=== PATIENT | female | born 2005 | race Caucasian/White ===

== ENCOUNTER 2023-07-10 17:34 | Emergency (ER) | payer BC, SELFPAY ==
[2023-07-10 17:37] VITALS: BP 115/80; PULSE 79; RESP 18; TEMP 36.5; O2SAT 97; BMI 25.8
--- NOTE | 2023-07-10 18:42 | EDS_ITS ---
HPI HPI - Psych History of Present Illness Chief Complaint: Mental Health Narrative Narrative: 17-year-old female, student, recently started Zoloft for depression and anxiety, has past medical history of ADHD as well, presents at the recommendation of her telehealth provider for mental health because of suicidal ideation. While she states she does not really have a plan and is unsure, she presents because of continued suicidal ideation. She denies any loss of appetite, no anhedonia, no insomnia or hypersomnolence. She states she has never been hospitalized for psychiatric reasons. PFSH PFSH Home Medications dextroamphetamine-amphetamine 10 mg tablet (Adderall) 10 mg PO DAILY 07/10/23 [History Last Taken Unknown] sertraline 50 mg tablet (Zoloft) 50 mg PO QHS 07/10/23 [History Last Taken Unknown] Allergy/AdvReac Type Severity Reaction Status Date / Time amoxicillin Allergy PT UNSURE Verified 07/10/23 17:36 OF REACTION Social History Smoking Status: Never smoker ROS ROS ED ROS Narrative Constitutional: No fever, no chills. HEENT: No sore throat. No neck pain. No loss of vision. No rhinorrhea. Cardiovascular: No chest pain. No palpitations. No pedal edema. Respiratory: No cough, no shortness of breath. Abdominal: No abdominal pain. No nausea. No vomiting. Genitourinary: No dysuria. No hematuria. Musculoskeletal: No myalgias. No arthralgias. Neurologic: No headaches. No dizziness. No lightheadedness. Skin: No rash. No change in color. Psychiatric: Positive depression with suicidal ideation. No hallucinations. EXAM Physical Exam Narrative Exam Narrative: Afebrile. Vital signs noted. HEENT: Normocephalic. Atraumatic. PERRL, EOMI. Neck soft and supple. No point tenderness or step off. Cardiovascular: Regular rate and rhythm. No murmurs, rubs, or gallops appreciated. Respiratory: No tachypnea. Lungs clear to auscultation bilaterally. Gastrointestinal: Abdomen soft, nontender, with normoactive bowel sounds. No rebound or guarding. Neurological: Awake. Alert. Nonfocal, nonlateralizing. Skin: No rash. Normal color. No pallor. Musculoskeletal: No pedal edema. Full range of motion extremities. Psychiatric: Positive suicidal thoughts. No internal stimulation or active hallucinations. Mildly flat affect. Const Vital Signs: 07/10/23 17:37 07/10/23 19:56 Temperature 97.7 F L 97.8 F Temperature Source Temporal Temporal Pulse Rate 79 73 Respiratory Rate 18 16 Blood Pressure 115/80 120/79 Blood Pressure Mean 91 92 Pulse Ox 97 97 Oxygen Delivery Method Room Air Room Air MDM MDM MDM Narrative Medical decision making narrative: Medical clearance labs were obtained. Concern is for suicidal with ideation with plan versus depression. I reviewed her laboratory work and she has normal white count of 7.6, hemoglobin normal at 13.3, platelet count normal at 332. CMP is grossly unremarkable except for glucose of 100 and AST low at 11 which I think is nonspecific. Other electrolytes are within normal limits. Serum is negative on review. Additionally urine for drugs of abuse is negative and alcohol level is also negative. At this point in time, I do feel that she is medically cleared to be evaluated by the crisis counselor. After her evaluation, discussion with the crisis counselor reveals that she is not really suicidal with a plan and she thinks of ways or things not to do. Was felt that she should contract for safety. She will be getting close follow-up with a long break at her school who will follow-up with her tomorrow. She knows that she supposed to check into the art therapy class as well. Crisis counselor states that they will follow-up with her on Thursday. She is able to verbally contract with me without ambivalence so I feel she can be discharged to follow- up and continue her Zoloft. They recently increased her from 25 to 50 mg so she will continue her 50 mg dosing. Return instructions to the emergency department were reviewed. Disposition is discharged home in stable condition. History & Record Review Discussion w/independent historian: Patient Lab Data Attestation: I reviewed the patient's lab results. Labs: Laboratory Results - last 24 hr 07/10/23 07/10/23 19:00 19:05 WBC 7.6 RBC 4.53 Hgb 13.3 Hct 40.7 MCV 89.8 MCH 29.4 MCHC 32.7 RDW Std Deviation 39.0 RDW Coeff of Edith 11.9 Plt Count 332 MPV 9.4 Immature Gran % (Auto) 0.300 Neut % (Auto) 59.5 Lymph % (Auto) 28.1 Daniels % (Auto) 8.9 Eos % (Auto) 2.4 Baso % (Auto) 0.8 Absolute Neuts (auto) 4.5 Absolute Lymphs (auto) 2.13 Nucleated RBC % 0 Sodium 141 Potassium 4.0 Chloride 106 Carbon Dioxide 28.0 Anion Gap 7 BUN 17 Creatinine 0.71 Estim Creat Clear Calc 108.81 Est GFR (MDRD) Af Amer 137 Est GFR (MDRD) Non-Af 113 BUN/Creatinine Ratio 24.1 H Glucose 100 Calcium 9.2 Total Bilirubin 0.30 AST 11 L ALT 16 Alkaline Phosphatase 81 Total Protein 7.6 Albumin 4.3 Globulin 3.3 Albumin/Globulin Ratio 1.3 Serum , Qual NEGATIVE Urine Opiates Screen NEGATIVE Urine Methadone Screen NEGATIVE Ur Barbiturates Screen NEGATIVE Ur Phencyclidine Scrn NEGATIVE Ur Amphetamines Screen NEGATIVE MDMA (Ecstasy) Screen NEGATIVE U Benzodiazepines Scrn NEGATIVE Urine Cocaine Screen NEGATIVE U Cannabinoids Screen NEGATIVE Ur Drug Screen Comment Ethyl Alcohol < 3.0 Discharge Plan Triage Chief Complaint: Mental Health ED Provider: Thom Mir Dx/Rx/DC Orders Clinical Impression: Suicidal thoughts, Depression Instructions: Suicide Know Self Warnings, ED Depression Prescriptions: No Action sertraline [Zoloft] 50 mg tablet 50 mg PO QHS dextroamphetamine-amphetamine [Adderall] 10 mg tablet 10 mg PO DAILY Primary Care Provider: Care Physician,No Primary Referrals: Counseling,Center [Group of Physicians] - 2 Days Care Physician,No Primary [Primary Care Provider] - Activity Restrictions/Additional Instructions: Follow-up with your counseling at school, and with the counseling center. Disposition Disposition: Home, Self Care
[2023-07-10 19:11] LABS: Absolute Lymphocyte Count 2.13 X10^3/uL (0.83-4.51); Absolute Neutrophil Count 4.5 X10^3/uL (2.0-7.7); Basophil# 0.06 X10^3/uL; Basophil% 0.8 % (0-1); Eosinophil# 0.18 X10^3/uL; Eosinophils% 2.4 % (0-5); Hematocrit 40.7 % (37-47); Hemoglobin 13.3 g/dL (12.0-15.0); Lymphocyte # 2.13 X10^3/ul (0.83-4.51); Lymphocyte % 28.1 % (19-41); Mean Corp Hgb Conc 32.7 g/dL (32-36); Mean Corpuscular Hgb 29.4 pg (27.0-32.0); Mean Corpuscular Volume 89.8 fL (81-99); Mean Platelet Vol. 9.4 fl (6.2-12.0); Monocyte# 0.67 X10^3/uL; Monocyte% 8.9 % (0-10); NRBC Flagged by Analyzer 0 % (0-5); Neutrophil # 4.51 X10^3/uL (2.7-7.7); Neutrophil % 59.5 % (47-70); Platelet Count 332 K/mm3 (150-450); RBC Distribution Width CV 11.9 % (11.6-14.6); Red Blood Count 4.53 M/mm3 (4.2-5.4); White Blood Count 7.6 K/mm3 (4.4-11.0)
[2023-07-10 19:49] LABS: Alcohol, Blood (Medical)-Serum < 3.0 mg/dL
[2023-07-10 19:53] LABS: Amphetamine Urine VISTA NEGATIVE (<1000 ng/mL); Barbiturate Urine VISTA NEGATIVE (< 200 ng/mL); Benzodiazepine Urine VISTA NEGATIVE (< 200 ng/mL); Cocaine Urine VISTA NEGATIVE (< 300 ng/mL); Ecstacy Urine VISTA NEGATIVE (< 500 ng/mL); Methadone Urine VISTA NEGATIVE (< 300 ng/mL); PCP Urine VISTA NEGATIVE (< 25 ng/mL); THC Urine VISTA NEGATIVE (< 50 ng/mL); Vista UDS pH Range 6
[2023-07-10 19:54] LABS: ALB/GLOB Ratio 1.3 RATIO (0.9-2.4); AST(SGOT) 11 U/L (15-37); Alanine Aminotransfer ALT/SGPT 16 U/L (13-56); Albumin, Serum 4.3 g/dL (3.2-5.0); Alkaline Phosphatase 81 U/L (45-117); Anion Gap 7 (5-15); BUN 17 mg/dL (7-18); BUN/Creat Ratio 24.1 RATIO (10-20); Calcium,Total 9.2 mg/dL (8.5-10.1); Chloride 106 mmol/L (98-107); Creatinine, Serum 0.71 mg/dL (0.55-1.02); EST Glomerular Filtration Rate 113 mL/min (>60); Est Glom Filt Rate - Afr Amer 137 mL/min (>60); Estimated Creatinine Clearance 108.81 ml/min; Globulin 3.3 g/dL (2.2-4.2); Glucose 100 mg/dL (74-106); Protein, Total 7.6 g/dL (6.4-8.2); Sodium Level 141 mmol/L (136-145)
[2023-07-10 19:56] VITALS: BP 120/79; PULSE 73; RESP 16; TEMP 36.6; O2SAT 97
[2023-07-10 20:04] LABS: Internal QC Validated? YES +Cl - CLEAR BKGD; Pregnancy, Serum, hCG Quali. NEGATIVE Negative
[2023-07-10 23:15] VITALS: BP 125/89; PULSE 77; RESP 16; TEMP 36.6; O2SAT 97
== END 2023-07-10 23:16 | disposition home or self-care (01) ==
PROVIDERS: Emergency Provider Emergency Medicine; Visit Provider Emergency Medicine
DX: R45.851 Suicidal ideations (principal); F32.A Depression, unspecified; F41.9 Anxiety disorder, unspecified; Z79.899 Other long term (current) drug therapy
CPT/HCPCS: 80053; 80307; 80320; 84703; 85025; 99285; G0480

== ENCOUNTER 2024-09-10 23:22 | Emergency (ER) | payer BC, SELFPAY ==
[2024-09-10 23:24] VITALS: BP 110/97; PULSE 86; RESP 16; TEMP 36.7; O2SAT 98; BMI 29.9
--- NOTE | 2024-09-10 23:50 | EDS_ITS ---
HPI History of Present Illness Chief Complaint: Lower Extremity Injury Narrative Narrative: 18-year-old female past medical history of depression and anxiety presents with her friend because of chronic left knee pain that she has had for over 3 years. She relates history that she quit playing field hockey last year. She states she has had multiple patellar dislocations of her left knee in the past, at least 5 times. She states that her sports physical therapist told her that it was more muscle spasm and all in her had although she states that she has replaced her kneecap multiple times when it has dislocated. She also states that she had x- rays performed at the [facility] and everything was okay with the bone. She complains of left medial and lateral knee pain that radiates outward from her knee both upward and down her leg. She denies any recent injuries or falls. She states that when she was in her hometown of [place], she was supposed to have an MRI but never had it performed. She presents mainly for referral to orthopedics here as she is a student at the [employer] Medical History Anxiety Home Medications ?Medication ?Instructions ?Recorded ?Last Taken ?Type sertraline 50 mg tablet (Zoloft) 50 mg PO QHS 07/10/23 Unknown History naproxen 375 mg tablet 375 mg PO BID PRN pain #20 t abs 09/10/24 Unknown Rx Allergy/AdvReac Type Severity Reaction Status Date / Time amoxicillin Allergy PT UNSURE Verified 09/10/24 23:24 OF REACTION Social History Smoking Status: Never smoker ROS ROS ED ROS Narrative Review of systems positive for chronic left knee pain for over 3 years. No recent falls. No fevers or chills. Pain worse with movement. Radiates up and down leg from knee. Both lateral and medial pain. EXAM Physical Exam Narrative Exam Narrative: GCS 15. ABCs intact. Focused examination of the left knee shows flexion extension mechanism intact. Able to lift leg off bed without difficulty. Neurovascular intact distally with palpable dorsalis pedis pulse. Const Vital Signs: 09/10/24 23:24 09/11/24 00:04 Temperature 98.0 F 98 F Temperature Source Oral Pulse Rate 86 76 Respiratory Rate 16 16 Blood Pressure 110/97 H 136/86 H Blood Pressure Mean 101 102 Pulse Ox 98 98 Oxygen Delivery Method Room Air MDM MDM MDM Narrative Medical decision making narrative: Differential diagnosis includes but not limited to chronic left knee pain exacerbation versus internal derangement of left knee. I do not feel x-ray is indicated and she states that she is already had one performed recently. She has not had any recent trauma. I had a lengthy discussion with the patient and her friend. She will be referred to orthopedics on-call, Dr. Lees. She will be placed in an Andrzej wrap and given naproxen continue ice and elevation at home. I do not feel she needs any imaging emergently. Disposition is discharged home in stable condition. History & Record Review Discussion w/independent historian: Patient and Friend Discharge Plan Triage Chief Complaint: Lower Extremity Injury ED Provider: Thom Mir Dx/Rx/DC Orders Clinical Impression: Chronic knee pain Instructions: ED Meniscal Injury Knee Poss, ED Home Care For Knee Pain, ED Pain Management: Chronic, ED Pain, Acute, Uncertain Cause Prescriptions: New naproxen 375 mg tablet 375 mg PO BID PRN (Reason: pain) Qty: 20 0RF No Action sertraline [Zoloft] 50 mg tablet 50 mg PO QHS Primary Care Provider: Care Physician,No Primary Referrals: Mario Alberto Lees MD [Med Staff - Active Staff] - As soon as possible Care Physician,No Primary [Primary Care Provider] - Activity Restrictions/Additional Instructions: Follow-up with orthopedics as soon as possible. Print Language: Somali Disposition Disposition: Home, Self Care Discharge Date/Time: 09/11/24 00:05
[2024-09-10] MEDS: Naproxen 375 MG Tablet PO (23:59)
--- OUTSIDE RECORDS SUMMARY | 2024-09-11 00:03 | XMS RPT_ITS | CCD ---
Author Organization [facility] Inform ion Partnership [employer] [facility] Care Team Providers Care Spinning Machine Tender Name Role Phone Unavailable Primary Care Provider UnavailThom Hooper Attending Unavailable Care Physician, No Primary Primary Care Unava ilable Unavailable Primary Care Provider Unavailabl e Allergies Allergy Classification Reported Allergen(s) Allergy Type Date of Onset Reaction(s) Facility (3 sources) Amoxicillin Drug Allergy 07-14-2007 Sandra Khan [facility] (1 source) Amoxicillin Drug Allergy 07-10-2023 [facility] Repository Medications Current Medications Medication Drug Class(es) Dates Sig (Normalized) Sig (Original) amphetamine aspartate 2.5 mg / amphetamine sulfate 2.5 mg / dextroamphetamine saccharate 2.5 mg / dextroamphetamine sulfate 2.5 mg oral tablet (3 sources) Central Nervous System Stimulant Start: 07-10-2023 take 1 tablet by mouth once daily Dextroamphetamin e-Amphetamine (Adderall) 10 mg tablet Active 10 MG PO DAILY July 10, 2023 12:00am Start: 02-27-2021 amphetamine-de xtroamphetamine XR (ADDERALL XR) 15 mg 24 hr capsule 02/27/2021 Active sertraline 50 mg oral tablet (1 source) Serotonin Reuptake Inhibitor Start: 07-10-2023 take 1 tablet by mouth at bedtime Sertraline (Zoloft) 50 mg tablet Active 50 MG PO AT BEDTIME July 10, 2023 12:00am Problems Problem Classification Problem Date Documented Da te Episodic/Chronic Mood disorders (1 source) Depressive disorder; Translations: [Depression] 07-10-2023 Chronic Other non-traumatic joint disorders (2 sources) Pain in left knee; Translations: [Pain in joint, lower leg] Episodic Suicide and intentional self-inflicted injury (2 sources) Suicidal thoughts; Translations: [Suicidal ideations] Onset: 11-16-2023 07-10-2023 Episodic Results Test Name Value Interpretation Reference Range Facility Absolute lymphocyte countOrd ered By: Thom Mir on 07-10-2023 Lymphocytes Auto (Unsp spec) [#/Vol] 2.13 10*3/uL 0.83-4.51 [facility] Alcohol, Blood (Medical)-Ser umon 07-10-2023 SERUM ETOH < 3.0 Normal [facility] Comment on above: Result Comment: The serum:whole blood ethanol ratio is approximately 1.14 and varies slightly with hematocrit. Medical Alcohol reference interval and critical value in non-tolerant individuals; 50 - 100 Impairment 100 Intoxication 100 - 250 Severe Poisoning 250 - 400 Deep/possible fatal coma Performed By: #### L 700.6800, L500.4050, L505.5000, L100.0100, L501.9100 #### [facility] [address] [place], [address] Automated lymphocyte count a s percentage of total leukocytesOrdered By: Thom Mir on 07-10-2023 Lymphocytes/100 WBC Auto (Unsp spec) 28.1 % 19-41 [facility] Basophil percentageOrdered B y: Thom Mir on 07-10-2023 Basophils/100 WBC (Bld) 0.8 % 0-1 [facility] Bilirubin [Mass/Vol] 0.30 mg/dL 0.20-1.00 [facility] Comment on above: For patients on eltr ombopag therapy, use of Dimension [place] TBIL is not recommended. Chloride [Moles/Vol] 106 mmol/L 98-107 [facility] Eosinophils/100 WBC (Bld) 2.4 % 0-5 [facility] Glucose [Mass/Vol] 100 mg/dL 74-106 [facility] Comment on above: Fasting Glucose resu lt from 100 to 125 mg/dL suggests IMPAIRED HOMEOSTASIS per A.D.A. criteria. Hemoglobin (Bld) [Mass/Vol] 13.3 g/dL 12.0-15.0 [facility] Monocytes/100 WBC (Bld) 8.9 % 0-10 [facility] Neutrophils (Bld) [#/Vol] 4.5 10*3/uL 2.0-7.7 [facility] Neutrophils/100 WBC (Bld) 59.5 % 47-70 [facility] Potassium [Moles/Vol] 4.0 mmol/L 3.5-5.1 [facility] Protein [Mass/Vol] 7.6 g/dL 6.4-8.2 [facility] Sodium [Moles/Vol] 141 mmol/L 136-145 [facility] WBC (Bld) [#/Vol] 7.6 10*3/uL 4.4-11.0 [facility] CBC W/Diff, Automatedon 06-21 Absolute Lymph 2.13 X10 3/uL Normal 0.83-4.51 [facility] Comment on above: Performed By: #### L 700.6800, L500.4050, L505.5000, L100.0100, L501.9100 #### [facility] [address] [place], [address] Absolute Neut 4.5 X10 3/uL Normal 2.0-7.7 [facility] Comment on above: Performed By: #### L 700.6800, L500.4050, L505.5000, L100.0100, L501.9100 #### [facility] [address] [place], [address] Basophils/100 WBC (Bld) 0.8 % Normal 0-1 [facility] Comment on above: Performed By: #### L 700.6800, L500.4050, L505.5000, L100.0100, L501.9100 #### [facility] [address] [place], [address] Eosinophils/100 WBC (Bld) 2.4 % Normal 0-5 [facility] Comment on above: Performed By: #### L 700.6800, L500.4050, L505.5000, L100.0100, L501.9100 #### [facility] [address] [place], [address] Erythrocyte distribution width (RBC) [Ratio] 11.9 % Normal 11.6-14.6 [facility] Comment on above: Performed By: #### L 700.6800, L500.4050, L505.5000, L100.0100, L501.9100 #### [facility] [address] [place], [address] Hematocrit (Bld) [Volume fraction] 40.7 % Normal 37-47 [facility] Comment on above: Performed By: #### L 700.6800, L500.4050, L505.5000, L100.0100, L501.9100 #### [facility] [address] [place], [address] Hemoglobin (Bld) [Mass/Vol] 13.3 g/dL Normal 12.0-15.0 [facility] Comment on above: Performed By: #### L 700.6800, L500.4050, L505.5000, L100.0100, L501.9100 #### [facility] [address] [place], [address] IG% 0.300 Normal 0.0-0.9 [facility] Comment on above: Result Comment: IG% - Immature Granulocytes (promyelocytes, myelocytes and metamyelocytes) > 1% indicates that a LEFT SHIFT is Present. Performed By: #### L 700.6800, L500.4050, L505.5000, L100.0100, L501.9100 #### [facility] [address] [place], [address] Lymphocytes/100 WBC (Bld) 28.1 % Normal 19-41 [facility] Comment on above: Performed By: #### L 700.6800, L500.4050, L505.5000, L100.0100, L501.9100 #### [facility] [address] [place], [address] MCH (RBC) [Entitic mass] 29.4 pg Normal 27.0-32.0 [facility] Comment on above: Performed By: #### L 700.6800, L500.4050, L505.5000, L100.0100, L501.9100 #### [facility] [address] [place], [address] MCHC (RBC) [Mass/Vol] 32.7 g/dL Normal 32-36 [facility] Comment on above: Performed By: #### L 700.6800, L500.4050, L505.5000, L100.0100, L501.9100 #### [facility] [address] [place], [address] MCV (RBC) [Entitic vol] 89.8 fL Normal 81-99 [facility] Comment on above: Performed By: #### L 700.6800, L500.4050, L505.5000, L100.0100, L501.9100 #### [facility] [address] [place], [address] Monocytes/100 WBC (Bld) 8.9 % Normal 0-10 [facility] Comment on above: Performed By: #### L 700.6800, L500.4050, L505.5000, L100.0100, L501.9100 #### [facility] [address] [place], [address] Neutrophils/100 WBC (Bld) 59.5 % Normal 47-70 [facility] Comment on above: Performed By: #### L 700.6800, L500.4050, L505.5000, L100.0100, L501.9100 #### [facility] [address] [place], [address] Nucleated RBC (Bld) [#/Vol] 0 10*3/uL Normal 0-5 [facility] Comment on above: Performed By: #### L 700.6800, L500.4050, L505.5000, L100.0100, L501.9100 #### [facility] [address] [place], [address] Platelet mean volume (Bld) [Entitic vol] 9.4 fL Normal 6.2-12.0 [facility] Comment on above: Performed By: #### L 700.6800, L500.4050, L505.5000, L100.0100, L501.9100 #### [facility] [address] [place], [address] Platelets (Bld) [#/Vol] 332 10*3/uL Normal 150-450 [facility] Comment on above: Performed By: #### L 700.6800, L500.4050, L505.5000, L100.0100, L501.9100 #### [facility] [address] [place], [address] RBC (Bld) [#/Vol] 4.53 10*6/uL Normal 4.2-5.4 [facility] Comment on above: Performed By: #### L 700.6800, L500.4050, L505.5000, L100.0100, L501.9100 #### [facility] [address] [place], [address] RDW SD 39.0 fl Normal 35.1-43.9 [facility] Comment on above: Performed By: #### L 700.6800, L500.4050, L505.5000, L100.0100, L501.9100 #### [facility] [address] [place], [address] WBC (Bld) [#/Vol] 7.6 10*3/uL Normal 4.4-11.0 [facility] Comment on above: Performed By: #### L 700.6800, L500.4050, L505.5000, L100.0100, L501.9100 #### [facility] [address] [place], [address] Comprehensive Metabolic Prof ilon 07-10-2023 Albumin [Mass/Vol] 4.3 g/dL Normal 3.2-5.0 [facility] Comment on above: Performed By: #### L 700.6800, L500.4050, L505.5000, L100.0100, L501.9100 #### [facility] [address] [place], [address] Albumin/Globulin [Mass ratio] 1.3 {ratio} Normal 0.9-2.4 [facility] Comment on above: Performed By: #### L 700.6800, L500.4050, L505.5000, L100.0100, L501.9100 #### [facility] [address] [place], [address] ALK P 81 U/L Normal 45-117 [facility] Comment on above: Performed By: #### L 700.6800, L500.4050, L505.5000, L100.0100, L501.9100 #### [facility] [address] [place], [address] ALT [Catalytic activity/Vol] 16 U/L Normal 13-56 [facility] Comment on above: Performed By: #### L 700.6800, L500.4050, L505.5000, L100.0100, L501.9100 #### [facility] [address] [place], [address] AST [Catalytic activity/Vol] 11 U/L Low 15-37 [facility] Comment on above: Performed By: #### L 700.6800, L500.4050, L505.5000, L100.0100, L501.9100 #### [facility] [address] [place], [address] Bilirubin [Mass/Vol] 0.30 mg/dL Normal 0.20-1.00 [facility] Comment on above: Result Comment: For patients on eltrombopag therapy, use of Dimension [place] TBIL is not recommended. Performed By: #### L 700.6800, L500.4050, L505.5000, L100.0100, L501.9100 #### [facility] [address] [place], [address] BUN/CRE 24.1 RATIO High 10-20 [facility] Comment on above: Performed By: #### L 700.6800, L500.4050, L505.5000, L100.0100, L501.9100 #### [facility] [address] [place], [address] CA,Total 9.2 mg/dL Normal 8.5-10.1 [facility] Comment on above: Performed By: #### L 700.6800, L500.4050, L505.5000, L100.0100, L501.9100 #### [facility] [address] [place], [address] Chloride [Moles/Vol] 106 mmol/L Normal 98-107 [facility] Comment on above: Performed By: #### L 700.6800, L500.4050, L505.5000, L100.0100, L501.9100 #### [facility] [address] [place], [address] CO2 [Moles/Vol] 28.0 mmol/L Normal 21.0-32.0 [facility] Comment on above: Performed By: #### L 700.6800, L500.4050, L505.5000, L100.0100, L501.9100 #### [facility] [address] [place], [address] Creatinine [Mass/Vol] 0.71 mg/dL Normal 0.55-1.02 [facility] Comment on above: Result Comment: The validity of the calculated GFR GFRAA in patients over 70 years has not been determined. Clinical correlation is essential. Performed By: #### L 700.6800, L500.4050, L505.5000, L100.0100, L501.9100 #### [facility] [address] [place], [address] ECRCL 108.81 ml/min Normal [facility] Comment on above: Performed By: #### L 700.6800, L500.4050, L505.5000, L100.0100, L501.9100 #### [facility] [address] [place], [address] EST GFR - AA 137 mL/min Normal >60 [facility] Comment on above: Result Comment: Afri can Iraqi GFR Calc Performed By: #### L 700.6800, L500.4050, L505.5000, L100.0100, L501.9100 #### [facility] [address] [place], [address] GAP 7 Normal 5-15 [facility] Comment on above: Performed By: #### L 700.6800, L500.4050, L505.5000, L100.0100, L501.9100 #### [facility] [address] [place], [address] GFR/1.73 sq M.predicted among non-blacks MDRD (S/P/Bld) [Vol rate/Area] 113 mL/min/{1.73_m2} Normal >60 [facility] Comment on above: Result Comment: Non- GFR Calc Performed By: #### L 700.6800, L500.4050, L505.5000, L100.0100, L501.9100 #### [facility] [address] [place], [address] Globulin (S) [Mass/Vol] 3.3 g/dL Normal 2.2-4.2 [facility] Comment on above: Performed By: #### L 700.6800, L500.4050, L505.5000, L100.0100, L501.9100 #### [facility] [address] [place], [address] Glucose [Mass/Vol] 100 mg/dL Normal 74-106 [facility] Comment on above: Result Comment: Fast ing Glucose result from 100 to 125 mg/dL suggests IMPAIRED HOMEOSTASIS per A.D.A. criteria. Performed By: #### L 700.6800, L500.4050, L505.5000, L100.0100, L501.9100 #### [facility] [address] [place], [address] Potassium [Moles/Vol] 4.0 mmol/L Normal 3.5-5.1 [facility] Comment on above: Performed By: #### L 700.6800, L500.4050, L505.5000, L100.0100, L501.9100 #### [facility] [address] [place], [address] Sodium [Moles/Vol] 141 mmol/L Normal 136-145 [facility] Comment on above: Performed By: #### L 700.6800, L500.4050, L505.5000, L100.0100, L501.9100 #### [facility] [address] [place], [address] T PROT 7.6 g/dL Normal 6.4-8.2 [facility] Comment on above: Performed By: #### L 700.6800, L500.4050, L505.5000, L100.0100, L501.9100 #### [facility] [address] [place], [address] Urea nitrogen [Mass/Vol] 17 mg/dL Normal 7-18 [facility] Comment on above: Performed By: #### L 700.6800, L500.4050, L505.5000, L100.0100, L501.9100 #### [facility] [address] [place], [address] Determination of erythrocyte mean corpuscular volume (MCV)Ordered By: Thom Mir on 07-10-2023 MCV (RBC) [Entitic vol] 89.8 fL 81-99 [facility] Emergency Department Summary on 07-10-2023 Emergency Department Summary [facility] Medical Records Department [address] [place] [address] Emergency Department Summary 07/10/23 MR#: [id number] Acct: [id number] Name: JERRI JIMENEZ Rep #: [id number] : 2005 17 From: Thom Mir MD PCP: Care Physician,No Primary Status:REG ER Location: ED HPI HPI - Psych History of Present Illness Chief Complaint: Mental Health Narrative Narrative: 17-year-old female, student, recently started Zoloft for depression and anxiety, has past medical history of ADHD as well, presents at the recommendation of her telehealth provider for mental health because of suicidal ideation. While she states she does not really have a plan and is unsure, she presents because of continued suicidal ideation. She denies any loss of appetite, no anhedonia, no insomnia or hypersomnolence. She states she has never been hospitalized for psychiatric reasons. PFSH PFSH Home Medications dextroamphetamine-amphet amine 10 mg tablet (Adderall) 10 mg PO DAILY 07/10/23 [History Last Taken Unknown] sertraline 50 mg tablet (Zoloft) 50 mg PO QHS 07/10/23 [History Last Taken Unknown] Allergy/AdvReac Type Severity Reaction Status Date / Time amoxicillin Allergy PT UNSURE Verified 07/10/23 17:36 OF REACTION Social History Smoking Status: Never smoker ROS ROS ED ROS Narrative Constitutional: No fever, no chills. HEENT: No sore throat. No neck pain. No loss of vision. No rhinorrhea. Cardiovascular: No chest pain. No palpitations. No pedal edema. Respiratory: No cough, no shortness of breath. Abdominal: No abdominal pain. No nausea. No vomiting. Genitourinary: No dysuria. No hematuria. Musculoskeletal: No myalgias. No arthralgias. Neurologic: No headaches. No dizziness. No lightheadedness. Skin: No rash. No change in color. Psychiatric: Positive depression with suicidal ideation. No hallucinations. EXAM Physical Exam Narrative Exam Narrative: Afebrile. Vital signs noted. HEENT: Normocephalic. Atraumatic. PERRL, EOMI. Neck soft and supple. No point tenderness or step off. Cardiovascular: Regular rate and rhythm. No murmurs, rubs, or gallops appreciated. Respiratory: No tachypnea. Lungs clear to auscultation bilaterally. Gastrointestinal: Abdomen soft, nontender, with normoactive bowel sounds. No rebound or guarding. Neurological: Awake. Alert. Nonfocal, nonlateralizing. Skin: No rash. Normal color. No pallor. Musculoskeletal: No pedal edema. Full range of motion extremities. Psychiatric: Positive suicidal thoughts. No internal stimulation or active hallucinations. Mildly flat affect. Const Vital Signs: 07/10/23 17:37 07/10/23 19:56 Temperature 97.7 F L 97.8 F Temperature Source Temporal Temporal Pulse Rate 79 73 Respiratory Rate 18 16 Blood Pressure 115/80 120/79 Blood Pressure Mean 91 92 Pulse Ox 97 97 Oxygen Delivery Method Room Air Room Air MDM MDM MDM Narrative Medical decision making narrative: Medical clearance labs were obtained. Concern is for suicidal with ideation with plan versus depression. I reviewed her laboratory work and she has normal white count of 7.6, hemoglobin normal at 13.3, platelet count normal at 332. CMP is grossly unremarkable except for glucose of 100 and AST low at 11 which I think is nonspecific. Other electrolytes are within normal limits. Serum is negative on review. Additionally urine for drugs of abuse is negative and alcohol level is also negative. At this point in time, I do feel that she is medically cleared to be evaluated by the crisis counselor. After her evaluation, discussion with the crisis counselor reveals that she is not really suicidal with a plan and she thinks of ways or things not to do. Was felt that she should contract for safety. She will be getting close follow-up with a long break at her school who will follow-up with her tomorrow. She knows that she supposed to check into the art therapy class as well. Crisis counselor states that they will follow-up with her on Thursday. She is able to verbally contract with me without ambivalence so I feel she can be discharged to follow-up and continue her Zoloft. They recently increased her from 25 to 50 mg so she will continue her 50 mg dosing. Return instructions to the emergency department were reviewed. Disposition is discharged home in stable condition. History Record Review Discussion w/independent historian: Patient Lab Data Attestation: I reviewed the patient's lab results. Labs: Laboratory Results - last 24 hr 07/10/23 07/10/23 19:00 19:05 WBC 7.6 RBC 4.53 Hgb 13.3 Hct 40.7 MCV 89.8 MCH 29.4 MCHC 32.7 RDW Std Deviation 39.0 RDW Coeff of Edith 11.9 Plt Count 332 MPV 9.4 Immature Gran % (Auto) 0.300 Ne (more content not included)... Normal [facility] Erythrocyte distribution wid th ratioOrdered By: Thom Mir on 07-10-2023 Erythrocyte distribution width (RBC) [Ratio] 11.9 % 11.6-14.6 [facility] Erythrocyte distribution wid th standard deviationOrdered By: Thom Mir on 07-10-2023 Erythrocyte distribution width (RBC) [Entitic vol] 39.0 fL 35.1-43.9 [facility] Hematocrit Auto (Bld) [Volum e fraction]Ordered By: Thom Mir on 07-10-2023 Hematocrit (Bld) [Volume fraction] 40.7 % 37-47 [facility] Immature granulocytes/100 WB C Auto (Bld)Ordered By: Thom Mir on 07-10-2023 Immature granulocytes/100 WBC (Bld) 0.300 % 0.0-0.9 [facility] Comment on above: IG% - Immature Granu locytes (promyelocytes, myelocytes and metamyelocytes) > 1% indicates that a LEFT SHIFT is Present. Laboratory - Chemistry and C hemistry - challengeOrdered By: Thom Mir on 07-10-2023 Albumin/Globulin [Mass ratio] 1.3 {ratio} 0.9-2.4 [facility] ALP [Catalytic activity/Vol] 81 U/L 45-117 [facility] ALT [Catalytic activity/Vol] 16 U/L 13-56 [facility] CO2 [Moles/Vol] 28.0 mmol/L 21.0-32.0 [facility] Globulin (S) [Mass/Vol] 3.3 g/dL 2.2-4.2 [facility] Urea nitrogen/Creatinine [Mass ratio] 24.1 mg/mg 10-20 [facility] - Drug toxicology Ordered By: Thom Mir on 07-10-2023 Amphetamines Ql (U) Negative <1000 ng/mL [facility] Benzodiazepines Ql (U) Negative < 200 ng/mL [facility] Cannabinoids Screen Ql (U) Negative < 50 ng/mL [facility] Cocaine Ql (U) Negative < 300 ng/mL [facility] Opiates Ql (U) Negative < 300 ng/mL [facility] Laboratory - Hematology and Cell countsOrdered By: Thom Mir on 07-10-2023 MCH (RBC) [Entitic mass] 29.4 pg 27.0-32.0 [facility] MCHC (RBC) [Mass/Vol] 32.7 g/dL 32-36 [facility] Nucleated RBC/100 WBC (Bld) [Ratio] 0 % 0-5 [facility] Platelet mean volume (Bld) [Entitic vol] 9.4 fL 6.2-12.0 [facility] Platelets (Bld) [#/Vol] 332 10*3/uL 150-450 [facility] No Panel InformationOrdered By: Thom Mir on 07-10-2023 Estimated Creatinine Clearance Calc 108.81 ml/min [facility] Estimated GFR (MDRD) Amer 137 mL/min >60 [facility] Comment on above: GFR Calc Estimated GFR (MDRD) Non-Af Amer 113 mL/min >60 [facility] Comment on above: Non- GFR Calc Ethyl Alcohol Level < 3.0 mg/dL [facility] Comment on above: The serum:whole bloo d ethanol ratio is approximately 1.14and varies slightly with hematocrit. Medical Alcohol reference interval and critical value innon-tolerant individuals; 50 - 100 Impairment 100 Intoxication 100 - 250 Severe Poisoning 250 - 400 Deep/possible fatal coma MDMA (Ecstasy) Screen Negative < 500 ng/mL [facility] Urine Barbiturates Screen Negative < 200 ng/mL [facility] Urine Drug Screen Comment [facility] Comment on above: CONFIRMATORY TESTING FOR ALL POSITIVE URINE DRUG SCREENRESULTS WILL ONLY BE SENT OUT UPON PHYSICIAN ORDER. VISTA Urine Drug Screen methods provide only preliminaryanalytical test results. A more specific alternate chemicalmethod must be used in order to obtain a confirmedanalytical result. Gas chromatography/mass spectrometery(GC/MS) is the preferred confirmatory method. Clinicalconsideration and professional judgement should be appliedto any drug of abuse test result, particularly whenpreliminary positive results are used. URINE TCA TESTING MUST BE ORDERED SEPARATELY. USE TESTMNEMONIC: [facility] Urine Methadone Screen Negative < 300 ng/mL [facility] ,Serum,hCG Quali.on 07-10-2023 HCG, SERUM QUAL Negative Normal [facility] Comment on above: Performed By: #### L 700.6800, L500.4050, L505.5000, L100.0100, L501.9100 #### [facility] [place], [address] RBC Auto (Bld) [#/Vol]Ordere d By: Thom Mir on 07-10-2023 RBC (Bld) [#/Vol] 4.53 10*6/uL 4.2-5.4 [facility] Serum or plasma calcium hawa urement (mass/volume)Ordered By: Thom Mir on 07-10-2023 Calcium [Mass/Vol] 9.2 mg/dL 8.5-10.1 [facility] Serum or plasma choriogonado tropin detectionOrdered By: Thom Mir on 07-10-2023 HCG ( test) Ql Negative [facility] Serum or plasma creatinine m easurement (mass/volume)Ordered By: Thom Mir on 07-10-2023 Creatinine [Mass/Vol] 0.71 mg/dL 0.55-1.02 [facility] Comment on above: The validity of the calculated GFR & GFRAA in patients over 70 years has not been determined. Clinical correlation is essential. Serum or plasma urea nitroge n measurement (mass/volume)Ordered By: Thom Mir on 07-10-2023 Urea nitrogen [Mass/Vol] 17 mg/dL 7-18 [facility] Thin prep Papanicolaou smear with manual screeningOrdered By: Thom Mir on 07-10-2023 Thin prep Papanicolaou smear with manual screening 4.3 g/dL 3.2-5.0 [facility] Thin prep Papanicolaou smear with manual screening 11 U/L 15-37 [facility] Thin prep Papanicolaou smear with manual screening 7 5-15 [facility] Urine Drug Screen (VISTA)on 07-10-2023 AMPHETAMINES Negative Normal <1000 ng/mL [facility] Comment on above: Performed By: #### L 700.6800, L500.4050, L505.5000, L100.0100, L501.9100 #### [facility] [address] [place], [place], [facility] BARBITIURATES Negative Normal < 200 ng/mL [facility] Comment on above: Performed By: #### L 700.6800, L500.4050, L505.5000, L100.0100, L501.9100 #### [facility] [address] [place], [place], [facility] BENZODIAZIPINE Negative Normal < 200 ng/mL [facility] Comment on above: Performed By: #### L 700.6800, L500.4050, L505.5000, L100.0100, L501.9100 #### [facility] [address] [place], [place], [facility] COCAINE Negative Normal < 300 ng/mL [facility] Comment on above: Performed By: #### L 700.6800, L500.4050, L505.5000, L100.0100, L501.9100 #### [facility] [address] [place], [address] ECSTACY Negative Normal < 500 ng/mL [facility] Comment on above: Performed By: #### L 700.6800, L500.4050, L505.5000, L100.0100, L501.9100 #### [facility] [address] [place], [address] METHADONE Negative Normal < 300 ng/mL [facility] Comment on above: Performed By: #### L 700.6800, L500.4050, L505.5000, L100.0100, L501.9100 #### [facility] [address] [place], [address] OPIATES Negative Normal < 300 ng/mL [facility] Comment on above: Performed By: #### L 700.6800, L500.4050, L505.5000, L100.0100, L501.9100 #### [facility] [address] [place], [address] PCP Negative Normal < 25 ng/mL [facility] Comment on above: Performed By: #### L 700.6800, L500.4050, L505.5000, L100.0100, L501.9100 #### [facility] [address] [place], [address] THC Negative Normal < 50 ng/mL [facility] Comment on above: Performed By: #### L 700.6800, L500.4050, L505.5000, L100.0100, L501.9100 #### [facility] [address] [place], [address] VISTA UDS PH 6 Normal [facility] Comment on above: Performed By: #### L 700.6800, L500.4050, L505.5000, L100.0100, L501.9100 #### [facility] [address] [place], [address] Urine phencyclidine (PCP) de tectionOrdered By: Thom Mir on 07-10-2023 Phencyclidine Ql (U) Negative < 25 ng/mL [facility] XR KNEE GENERAL 4V AP BOTH/P A BOTH/LAT/MERC LEFTon 07-09-2022 [facility] XR Knee - left 4 Viewson IMPRESSION: LEFT KNEE: Normal left knee. No acute findings. RIGHT KNEE: Normal images of the right knee. Lateral view of the right knee was not obtained. Costume Design Teacher: ISREAL Transcribe Date/Time: Jul 09 2022 7:24P Dictated by : ANIBAL DUMONT MD This examination was interpreted and the report reviewed and electronically signed by: ANIBAL DUMONT MD on Jul 09 2022 7:27PM [facility] DIVISION OF RADIOLOGY * * *Final Report* * * DATE OF EXAM: Jul 09 2022 7:15PM WOX 5202 - XR KNEE 4V AP/PA BOTH+LAT/JALYN LT / PROCEDURE REASON: Acute pain of left knee * * * * Physician Interpretation * * * * LEFT KNEE 1 VIEWS, BILATERAL KNEES, 3 VIEW, 07/09/2022 HISTORY: Injury. Acute pain of left knee COMPARISON: None TECHNIQUE: Standing AP and PA views of bilateral knees. Bilateral patellar sunrise views. Lateral view left knee.. RESULTS: LEFT KNEE: The bones are intact and normally aligned. There are no underlying bone or joint abnormalities. There is no appreciable joint effusion. There are no periarticular calcifications. RIGHT KNEE: The bones are intact and normally aligned. There are no underlying bone or joint abnormalities. No periarticular calcifications are present. DIVISION OF RADIOLOGY Provider, [facility] - 07/09/2022 * * *Final Report* * * DATE OF EXAM: Jul 09 2022 7:15PM WOX 5202 - XR KNEE 4V AP/PA BOTH+LAT/JALYN LT / PROCEDURE REASON: Acute pain of left knee * * * * Physician Interpretation * * * * LEFT KNEE 1 VIEWS, BILATERAL KNEES, 3 VIEW, 07/09/2022 HISTORY: Injury. Acute pain of left knee COMPARISON: None TECHNIQUE: Standing AP and PA views of bilateral knees. Bilateral patellar sunrise views. Lateral view left knee.. RESULTS: LEFT KNEE: The bones are intact and normally aligned. There are no underlying bone or joint abnormalities. There is no appreciable joint effusion. There are no periarticular calcifications. RIGHT KNEE: The bones are intact and normally aligned. There are no underlying bone or joint abnormalities. No periarticular calcifications are present. IMPRESSION IMPRESSION: LEFT KNEE: Normal left knee. No acute findings. RIGHT KNEE: Normal images of the right knee. Lateral view of the right knee was not obtained. Costume Design Teacher: ISREAL Transcribe Date/Time: Jul 09 2022 7:24P Dictated by : ANIBAL DUMONT MD This examination was interpreted and the report reviewed and electronically signed by: ANIBAL DUMONT MD on Jul 09 2022 7:27PM EST [facility] Radiology Study observation (narrative) [facility] XR Knee - left 4 ViewsOrdere d By: Ccf Provider on 07-09-2022 [facility] CBC W Auto Differential pane l (Bld)on 06-17-2022 Basophils (Bld) [#/Vol] 0.05 10*3/uL Normal <0.11 [facility] Comment on above: Order Comment: Tom foster Type: BLOOD SPECIMEN Ordering Facility: [facility] Address: ATTN: [place] [address] Performed By: #### 5 7021-8 #### [facility] CLIA [id number] [address] [place] [address] [place] Basophils/100 WBC (Bld) 0.4 % Normal [facility] Comment on above: Order Comment: Tom foster Type: BLOOD SPECIMEN Ordering Facility: [facility] Address: ATTN: [place] [address] Performed By: #### 5 7021-8 #### [facility] CLIA [id number] [address] [place] [address] [place] Differential cell count method Nom (Bld) Auto Normal [facility] Comment on above: Order Comment: Tom foster Type: BLOOD SPECIMEN Ordering Facility: [facility] Address: ATTN: [place] [address] Performed By: #### 5 7021-8 #### [facility] CLIA [id number] [address] [place] [address] [place] Eosinophils (Bld) [#/Vol] 0.13 10*3/uL Normal <0.46 [facility] Comment on above: Order Comment: Speci men Type: BLOOD SPECIMEN Ordering Facility: [facility] Address: ATTN: [place] [address] Performed By: #### 5 7021-8 #### [facility] CLIA [id number] [address] [place] [address] [place] Eosinophils/100 WBC (Bld) 1.0 % Normal [facility] Comment on above: Order Comment: Speci men Type: BLOOD SPECIMEN Ordering Facility: [facility] Address: ATTN: [address]ESMOND [place] [address] Performed By: #### 5 7021-8 #### [facility] CLIA [id number] [address] [place] [address] [place] Erythrocyte distribution width (RBC) [Ratio] 11.9 % Normal 11.5-15.0 [facility] Comment on above: Order Comment: Speci men Type: BLOOD SPECIMEN Ordering Facility: [facility] Address: ATTN: [place] [address] Performed By: #### 5 7021-8 #### [facility] CLIA [id number] [address] [place] [address] [place] Hematocrit (Bld) [Volume fraction] 40.0 % Normal 36.0-46.0 [facility] Comment on above: Order Comment: Speci men Type: BLOOD SPECIMEN Ordering Facility: [facility] Address: ATTN: [place] [address] Performed By: #### 5 7021-8 #### [facility] CLIA [id number] [address] [place] [address] [place] Hemoglobin (Bld) [Mass/Vol] 13.6 g/dL Normal 11.5-15.5 [facility] Comment on above: Order Comment: Speci men Type: BLOOD SPECIMEN Ordering Facility: [facility] Address: ATTN: [place] [address] Performed By: #### 5 7021-8 #### [facility] CLIA [id number] [address] [place] [address] [place] Immature granulocytes (Bld) [#/Vol] 0.04 10*3/uL Normal <0.10 [facility] Comment on above: Order Comment: Speci men Type: BLOOD SPECIMEN Ordering Facility: [facility] Address: ATTN: [place] [address] Performed By: #### 5 7021-8 #### [facility] CLIA [id number] [address] [place] [address] [place] Immature granulocytes/100 WBC (Bld) 0.3 % Normal [facility] Comment on above: Order Comment: Speci men Type: BLOOD SPECIMEN Ordering Facility: [facility] Address: ATTN: [place] [address] Performed By: #### 5 7021-8 #### [facility] CLIA [id number] [address] [place] [address] [place] Lymphocytes (Bld) [#/Vol] 1.49 10*3/uL Normal 1.00-4.00 [facility] Comment on above: Order Comment: Speci men Type: BLOOD SPECIMEN Ordering Facility: [facility] Address: ATTN: [place] [address] Performed By: #### 5 7021-8 #### [facility] CLIA [id number] [address] [place] [address] [place] Lymphocytes/100 WBC (Bld) 11.8 % Normal [facility] Comment on above: Order Comment: Speci men Type: BLOOD SPECIMEN Ordering Facility: [facility] Address: ATTN: [place] [address] Performed By: #### 5 7021-8 #### [facility] CLIA [id number] [address] [place] [address] [place] MCH (RBC) [Entitic mass] 30.4 pg Normal 26.0-34.0 [facility] Comment on above: Order Comment: Speci men Type: BLOOD SPECIMEN Ordering Facility: [facility] Address: ATTN: [place] [address] Performed By: #### 5 7021-8 #### [facility] CLIA [id number] [address] [place] [address] [place] MCHC (RBC) [Mass/Vol] 34.0 g/dL Normal 30.5-36.0 [facility] Comment on above: Order Comment: Speci men Type: BLOOD SPECIMEN Ordering Facility: [facility] Address: ATTN: [place] [address] Performed By: #### 5 7021-8 #### [facility] CLIA [id number] [address] [place] [address] [place] MCV (RBC) [Entitic vol] 89.3 fL Normal 80.0-100.0 [facility] Comment on above: Order Comment: Speci men Type: BLOOD SPECIMEN Ordering Facility: [facility] Address: ATTN: [place] [address] Performed By: #### 5 7021-8 #### [facility] CLIA [id number] [address] [place] [address] [place] Monocytes (Bld) [#/Vol] 0.75 10*3/uL Normal <0.87 [facility] Comment on above: Order Comment: Speci men Type: BLOOD SPECIMEN Ordering Facility: [facility] Address: ATTN: [place] [address] Performed By: #### 5 7021-8 #### [facility] CLIA [id number] [address] [place] [address] [place] Monocytes/100 WBC (Bld) 5.9 % Normal [facility] Comment on above: Order Comment: Speci men Type: BLOOD SPECIMEN Ordering Facility: [facility] Address: ATTN: [place] [address] Performed By: #### 5 7021-8 #### [facility] CLIA [id number] [address] [place] [address] [place] Neutrophils (Bld) [#/Vol] 10.16 10*3/uL High 1.45-7.50 [facility] Comment on above: Order Comment: Speci men Type: BLOOD SPECIMEN Ordering Facility: [facility] Address: ATTN: [place] [address] Performed By: #### 5 7021-8 #### [facility] CLIA [id number] [address] [place] [address] [place] Neutrophils/100 WBC (Bld) 80.6 % Normal [facility] Comment on above: Order Comment: Speci men Type: BLOOD SPECIMEN Ordering Facility: [facility] Address: ATTN: [place] [address] Performed By: #### 5 7021-8 #### [facility] CLIA [id number] [address] [place] [address] [place] Nucleated RBC (Bld) [#/Vol] 10*3/uL Normal <0.01 [facility] Comment on above: Order Comment: Speci men Type: BLOOD SPECIMEN Ordering Facility: [facility] Address: ATTN: [place] [address] Performed By: #### 5 7021-8 #### [facility] CLIA [id number] [address] [place] [address] [place] Nucleated RBC/100 WBC (Bld) [Ratio] 0.0 /100 WBC Normal [facility] Comment on above: Order Comment: Speci men Type: BLOOD SPECIMEN Ordering Facility: [facility] Address: ATTN: [place] [address] Performed By: #### 5 7021-8 #### [facility] CLIA [id number] [address] [place] [address] [place] Platelet mean volume (Bld) [Entitic vol] 9.9 fL Normal 9.0-12.7 [facility] Comment on above: Order Comment: Speci men Type: BLOOD SPECIMEN Ordering Facility: [facility] Address: ATTN: [place] [address] Performed By: #### 5 7021-8 #### [facility] CLIA [id number] [address] [place] [address] [place] Platelets (Bld) [#/Vol] 358 10*3/uL Normal 150-400 [facility] Comment on above: Order Comment: Speci men Type: BLOOD SPECIMEN Ordering Facility: [facility] Address: ATTN: [place] [address] Performed By: #### 5 7021-8 #### [facility] CLIA [id number] [address] [place] [address] [place] RBC (Bld) [#/Vol] 4.48 10*6/uL Normal 3.90-5.20 [facility] Comment on above: Order Comment: Speci men Type: BLOOD SPECIMEN Ordering Facility: [facility] Address: ATTN: [place] [address] Performed By: #### 5 7021-8 #### [facility] CLIA [id number] [address] [place] [address] [place] WBC (Bld) [#/Vol] 12.62 10*3/uL High 3.70-11.00 [facility] Comment on above: Order Comment: Speci men Type: BLOOD SPECIMEN Ordering Facility: [facility] Address: ATTN: [place] [address] Performed By: #### 5 7021-8 #### [facility] CLIA [id number] [address] [place] [address] [place] Comprehensive metabolic 2000 panelon 06-17-2022 Albumin [Mass/Vol] 4.6 g/dL Normal 3.9-4.9 [facility] Comment on above: Order Comment: Speci men Type: BLOOD SPECIMEN Ordering Facility: [facility] Address: ATTN: [place] [address] Performed By: #### 5 0190-8, 3016-3, 06254-8, 6-4 #### [facility] CLIA [id number] [address] [place], [place] [address] [place] ALP [Catalytic activity/Vol] 79 U/L Normal 45-87 [facility] Comment on above: Order Comment: Speci men Type: BLOOD SPECIMEN Ordering Facility: [facility] Address: ATTN: [place] [address] Performed By: #### 5 0190-8, 3016-3, 59348-5, 2275-4 #### [facility] CLIA [id number] [address] [place], [place] [address] [place] ALT [Catalytic activity/Vol] 13 U/L Normal 7-38 [facility] Comment on above: Order Comment: Speci men Type: BLOOD SPECIMEN Ordering Facility: [facility] Address: ATTN: [address] [place] [address] Performed By: #### 5 0190-8, 3016-3, 61113-2, 2275-4 #### [facility] CLIA [id number] [address] [place] [address] [place] Anion gap [Moles/Vol] 12 mmol/L Normal 9-18 [facility] Comment on above: Order Comment: Speci men Type: BLOOD SPECIMEN Ordering Facility: [facility] Address: ATTN: [place] [address] Performed By: #### 5 0190-8, 3016-3, 10771-3, 2276-4 #### [facility] CLIA [id number] [address] [address] [place] AST [Catalytic activity/Vol] 17 U/L Normal 13-35 [facility] Comment on above: Order Comment: Speci men Type: BLOOD SPECIMEN Ordering Facility: [facility] Address: ATTN: [place]ESM[place] [address] Performed By: #### 5 0190-8, 3016-3, 39120-4, 2275-4 #### [facility] CLIA [id number] [address] [address] [place] Bilirubin [Mass/Vol] 0.6 mg/dL Normal 0.2-1.3 [facility] Comment on above: Order Comment: Speci men Type: BLOOD SPECIMEN Ordering Facility: [facility] Address: ATTN: [place] [address] Performed By: #### 5 0190-8, 3016-3, 88835-1, 2275-4 #### [facility] CLIA [id number] [address] [place], [place] [address] [place] Calcium [Mass/Vol] 9.7 mg/dL Normal 8.5-10.2 [facility] Comment on above: Order Comment: Speci men Type: BLOOD SPECIMEN Ordering Facility: [facility] Address: ATTN: [place] [address] Performed By: #### 5 0190-8, 3016-3, 28828-2, 2275-4 #### [facility] CLIA [id number] [address] [address] [place] Chloride [Moles/Vol] 105 mmol/L Normal 97-105 [facility] Comment on above: Order Comment: Speci men Type: BLOOD SPECIMEN Ordering Facility: [facility] Address: ATTN: [place] [address] Performed By: #### 5 0190-8, 3016-3, 32114-9, 2275-4 #### [facility] CLIA [id number] [address] [place] [address] [place] CO2 [Moles/Vol] 24 mmol/L Normal 22-30 [facility] Comment on above: Order Comment: Speci men Type: BLOOD SPECIMEN Ordering Facility: [facility] Address: ATTN: [place] [address] Performed By: #### 5 0190-8, 3016-3, 81826-6, 2275-4 #### [facility] CLIA [id number] [address] [place] [address] [place] Creatinine [Mass/Vol] 0.72 mg/dL Normal 0.58-0.96 [facility] Comment on above: Order Comment: Speci men Type: BLOOD SPECIMEN Ordering Facility: [facility] Address: ATTN: [place] [address] Performed By: #### 5 0190-8, 3016-3, 44347-8, 4 #### [facility] CLIA [id number] [address] [place] [address] [place] ESTIMATED GLOMERULAR FILTRATION RATE 124 mL/min/1.73m??? Normal >=60 [facility] Comment on above: Order Comment: Speci men Type: BLOOD SPECIMEN Ordering Facility: [facility] Address: ATTN: [place] [address] Result Comment: Mayra mated Glomerular Filtration Rate (eGFR) is calculated using the 2020 CKD-EPI creatinine equation. This equation utilizes serum creatinine, sex, and age as parameters. The creatinine assay has traceable calibration to isotope dilution-mass spectrometry. Refer to KDIGO guidelines for clinical interpretation. In patients with unstable renal function, e.g. those with acute kidney injury, the eGFR may not accurately reflect actual GFR. Performed By: #### 5 0190-8, 3016-3, 24097-2, 2275-4 #### [facility] CLIA [id number] [address] [place] [address] [place] Glucose [Mass/Vol] 93 mg/dL Normal 74-99 [facility] Comment on above: Order Comment: Tom foster Type: BLOOD SPECIMEN Ordering Facility: [facility] Address: ATTN: [place] [address] Result Comment: The [place] [employer] (ADA) provides guidance for cutoff values for fasting glucose and random glucose. The ADA defines fasting as no caloric intake for at least 8 hours. Fasting plasma glucose results between 100 to 125 mg/dL indicate increased risk for diabetes (prediabetes). Fasting plasma glucose results greater than or equal to 126 mg/dL meet the criteria for diagnosis of diabetes. In the absence of unequivocal hyperglycemia, results should be confirmed by repeat testing. In a patient with classic symptoms of hyperglycemia or hyperglycemic crisis, random plasma glucose results greater than or equal to 200 mg/dL meet the criteria for diagnosis of diabetes. Reference: Standards of Medical Care in Diabetes 2016, [place] [employer]. Diabetes Care. 2016.39(Suppl 1). Performed By: #### 5 0190-8, 3016-3, 48701-8, 6-4 #### [facility] CLIA [id number] [address] [place] [address] [place] Potassium [Moles/Vol] 4.2 mmol/L Normal 3.7-5.1 [facility] Comment on above: Order Comment: Tom foster Type: BLOOD SPECIMEN Ordering Facility: [facility] Address: ATTN: [place] [address] Performed By: #### 5 0190-8, 3016-3, 31277-7, 6-4 #### [facility] CLIA [id number] [address] [address] [place] Protein [Mass/Vol] 7.1 g/dL Normal 6.3-8.0 [facility] Comment on above: Order Comment: Tom foster Type: BLOOD SPECIMEN Ordering Facility: [facility] Address: ATTN: [place] [address] Performed By: #### 5 0190-8, 3016-3, 45884-9, 2276-4 #### [facility] CLIA [id number] [address] [place] [address] [place] Sodium [Moles/Vol] 141 mmol/L Normal 136-144 [facility] Comment on above: Order Comment: Speci men Type: BLOOD SPECIMEN Ordering Facility: [facility] Address: ATTN: [place] [address] Performed By: #### 5 0190-8, 3016-3, 31119-7, 2276-4 #### [facility] CLIA [id number] [address] [place] [address] [place] Urea nitrogen [Mass/Vol] 13 mg/dL Normal 7-21 [facility] Comment on above: Order Comment: Speci men Type: BLOOD SPECIMEN Ordering Facility: [facility] Address: ATTN: [place] [address] Performed By: #### 5 0190-8, 3016-3, 92666-3, 6-4 #### [facility] CLIA [id number] [address] [place] [address] [place] Ferritin SerPl-mCncon 2022 Ferritin [Mass/Vol] 43.3 ng/mL Normal 14.7-205.1 [facility] Comment on above: Order Comment: Speci men Type: BLOOD SPECIMEN Ordering Facility: [facility] Address: ATTN: [place] [address] Performed By: #### 5 0190-8, 3016-3, 29629-0, 2276-4 #### [facility] CLIA [id number] [address] [place] [address] [place] Iron and Iron binding capaci ty panelon 06-17-2022 Iron [Mass/Vol] 104 ug/dL Normal 41-186 [facility] [facility] Comment on above: Order Comment: Speci men Type: BLOOD SPECIMEN Ordering Facility: [facility] Address: ATTN: [place] [address] Performed By: #### 5 0190-8, 3016-3, 45454-3, 2275-4 #### [facility] CLIA [id number] [address] [place] [address] [place] Iron binding capacity [Mass/Vol] 306 ug/dL Normal 232-386 [facility] Comment on above: Order Comment: Tom foster Type: BLOOD SPECIMEN Ordering Facility: [facility] Address: ATTN: [place] [address] Performed By: #### 5 0190-8, 3016-3, 30388-0, 2275-4 #### [facility] CLIA [id number] [address] [place] [address] [place] Iron/TIBC [Molar ratio] 34.0 % Normal 15.0-57.0 [facility] Comment on above: Order Comment: Tom foster Type: BLOOD SPECIMEN Ordering Facility: [facility] Address: ATTN: [place] [address] Performed By: #### 5 0190-8, 3016-3, 70071-9, 2275-4 #### [facility] CLIA [id number] [address] [place] [address] [place] TSH SerPl-aCncon 06-17-2022 TSH Qn 0.715 m[IU]/L Normal 0.510-4.300 [facility] Comment on above: Order Comment: Tom foster Type: BLOOD SPECIMEN Ordering Facility: [facility] Address: ATTN: [place] [address] Result Comment: If t he patient is , TSH reference range varies by gestational period: First Trimester (weeks 9-12): 0.180-2.990 mIU/L Second Trimester: 0.110-3.980 mIU/L Third Trimester: 0.480-4.710 mIU/L Nawaf Pacheco et al. A Practical Approach for the Verifications and Determination of Site- and Trimester-Specific Reference Intervals for Thyroid Function tests in . Thyroid, 2019:29:3:412-420. Cheng E, et al. 2017 Guidelines of the [place] Thyroid Association for the Diagnosis and Management of Thyroid Disease during and the . Thyroid, 2017:27:3:315-389. Reference ranges were not locally established for this patient's age group. The normal values are based on the following source: Donna Stoll, Elias Cox. Reference Ranges for Adults and Children: Pre-analytical Considerations. [facility] Performed By: #### 5 0190-8, 3016-3, 58015-1, 2276-4 #### [facility] CLIA [id number] [address] [place] [address] [place] Vital Signs Date Time Vital Sign Value Performing Clinician Faci [facility] 07-10-2023 23:15-0400 Body temperature 97.9 [degF] [facility] 07-10-2023 23:15-0400 Diastolic blood pressure 89 mm[Hg] [facility] 07-10-2023 23:15-0400 Heart rate 77 /min [facility] 07-10-2023 23:15-0400 Respiratory rate 16 /min [facility] 07-10-2023 23:15-0400 SaO2% (BldA) [Mass fraction] 97 % [facility] 07-10-2023 23:15-0400 Systolic blood pressure 125 mm[Hg] [facility] 07-10-2023 17:37-0400 Body height 156.84 cm [facility] 07-10-2023 17:37-0400 Body mass index (BMI) [Percentile] Per age and sex 83 % [facility] 07-10-2023 17:37-0400 Body mass index (BMI) [Ratio] 25.8 kg/m2 [facility] 07-10-2023 17:37-0400 Body weight 63.5 kg [facility] 07-09-2022 18:46-0400 Body temperature 98.1 [degF] Maddie Hayward APRN.NATURAL GAS TECHNICIAN Work Phone: [facility] 07-09-2022 18:46-0400 Body weight 64.05 kg Maddie Hayward DEPUTY SHERIFF CUSTODY.NATURAL GAS TECHNICIAN Work Phone: [facility] 07-09-2022 18:46-0400 Diastolic blood pressure 84 mm[Hg] Maddie Hayward DEPUTY SHERIFF CUSTODY.NATURAL GAS TECHNICIAN Work Phone: [facility] 07-09-2022 18:46-0400 Heart rate 97 /min Maddie Hayward DEPUTY SHERIFF CUSTODY.NATURAL GAS TECHNICIAN Work Phone: [facility] 07-09-2022 18:46-0400 Respiratory rate 18 /min Maddie Hayward DEPUTY SHERIFF CUSTODY.NATURAL GAS TECHNICIAN Work Phone: [facility] 07-09-2022 18:46-0400 SaO2% (BldA) [Mass fraction] 98 % Maddie Hayward DEPUTY SHERIFF CUSTODY.NATURAL GAS TECHNICIAN Work Phone: [facility] 07-09-2022 18:46-0400 Systolic blood pressure 124 mm[Hg] Maddie Hayward DEPUTY SHERIFF CUSTODY.NATURAL GAS TECHNICIAN Work Phone: [facility] Encounters Encounter Date Encounter Type Care Provider Facility Start: 07-10-2023 End: 07-10-2023 Emergency department patient visit [facility] Work Phone: Start: 07-09-2022 End: 07-09-2022 Subsequent hospital visit by physician [facility] Work Phone: Radiology Comment on above: Acute pain of left k nee [M25.562] Start: 07-09-2022 End: 07-09-2022 Patient encounter procedure Maddie Hayward APRN.NATURAL GAS TECHNICIAN Work Phone: [facility] Comment on above: Acute pain of left k nee (Primary Dx) Procedures Date Procedure Procedure Detail Performing Clinician Start: 07-09-2022 Radiologic exam knee complete 4/more views Maddie Hayward APRN.NATURAL GAS TECHNICIAN Work Phone: Plan of Treatment Date Care Activity Detail Author Start: 02-22-2025 Urine microalbumin profile DTaP,Tdap,Td Vaccine (7 - Td or Tdap) [facility] Start: 11-22-2023 Covid-19 Vaccine (3 - 2024-25 season) Covid-19 Vaccine ( season) [facility] Start: 11-22-2023 Influenza vaccination Influenza Vaccine (#1) [facility] Start: 07-10-2023 [facility] Start: 07-10-2023 [facility] Start: 07-10-2023 End: 07-10-2023 Suicide precautions [facility] Start: 07-10-2023 Referral to service [facility] Start: 11-21-2022 Influenza vaccination INFLUENZA (Season Ended) [facility] Start: 03-23-2022 DEPRESSION ASSESSMENT DEPRESSION ASSESSMENT [facility] Start: 12-23-2021 Anxiety Screening Anxiety Screening [facility] Start: 12-23-2021 CHLAMYDIA SCREENING (18-24) CHLAMYDIA SCREENING (18-24) [facility] Start: 12-23-2021 Depression Screening Depression Screening [facility] Start: 12-23-2021 GC (GONORRHEA) SCREENING (18-24) GC (GONORRHEA) SCREENING (18-24) [facility] Start: 12-23-2021 HEPATITIS C SCREENING HEPATITIS C SCREENING [facility] Start: 12-23-2021 Hepatitis C screening Hepatitis C Screening [facility] Start: 12-23-2021 HIV SCREENING HIV SCREENING [facility] Start: 12-23-2021 HIV screening HIV Screening [facility] Start: 12-23-2021 Screening for Chlamydia trachomatis Chlamydia Screening (18-24) [facility] Start: 12-02-2021 Meningococcal B Vaccine: Consider Based On Risk (2 of 2 - Risk Bexsero 2-dose series) Meningococcal B Vaccine: Consider Based On Risk (2 of 2 - Risk Bexsero 2-dose series) [facility] Start: 09-16-2020 COVID-19 VACCINE (3 - Booster for Pfizer series) COVID-19 VACCINE (3 - Booster for Pfizer series) [facility] Start: 2019 MENINGOCOCCAL CONJUGATE (1 - 2-dose series) MENINGOCOCCAL CONJUGATE (1 - 2-dose series) [facility] Start: 12-23-2017 PEDS TO ADULT TRANSITION ANNUAL ASSESSMENT PEDS TO ADULT TRANSITION ANNUAL ASSESSMENT [facility] Start: 2015 PEDS TO ADULT TRANSITION INITIAL DISCUSSION PEDS TO ADULT TRANSITION INITIAL DISCUSSION [facility] Start: 12-23-2014 HPV VACCINE (1 - 2-dose series) HPV VACCINE (1 - 2-dose series) [facility] Start: 12-23-2013 MENINGOCOCCAL B: Consider based on risk (1 of 2 - Risk Bexsero 2-dose series) MENINGOCOCCAL B: Consider based on risk (1 of 2 - Risk Bexsero 2-dose series) [facility] Start: 12-23-2010 Urine microalbumin profile DTAP,TDAP,TD (1 - Tdap) [facility] Start: 2003 HEPATITIS B (1 of 3 - 3-dose series) HEPATITIS B (1 of 3 - 3-dose series) [facility] Patient Education Suicide Know S elf Warnings ED Depression [facility] Work Phone: Patient referral [facility] Work Phone: Immunizations Immunization Date Immunization Notes Care Provider Suleiman deras 02-27-2021 influenza virus vacc ine, unspecified formulation [facility] Work Phone: [facility] Payers Date Payer Category Payer Self-pay 2023 Unknown [id number] 2022 Unknown [employer] PPO OOS [id number] 2022-Present [phone] [id number] [place] [address] PPO [id number] Unknown [id number] Social History Date Type Detail Facility Start: [facility]09[facility]22 [facility] Start: 07-09-2022 Tobacco use and exposure Smokeless tobacco non-user [facility] Start: 2003 Sex Assigned At Not on file [facility] Start: 07-10-2023 [facility] ever [facility] Start: 2005 Sex Assigned At Female W [facility] Start: 07-09-2022 History of Social function [facility] Start: 07-09-2022 Tobacco use panel [facility] Discharge summary 07-10-2023 Note Date & Type Note Facility 07-10-2023 Discharge summary Note Date/Time July 10, 2023 6:44pm [facility] Medical Records Department [address] [place] [address] Emergency Department Summary 07/10/23 MR#: [id number] Acct: [id number] Name: JERRI JIMENEZ Rep #:[id number] : 2005 17 From: Thom Mir MD PCP: Care Physician,No Primary Status :REG ER Location: ED HPI HPI - Psych History of Present Illness Chief Complaint: Mental Health Narrative Narrative: 17-year-old female, student, recently started Zoloft for depression and anxiety,has past medical history of ADHD as well, presents at the recommendation of her telehealth provider for mental health because of suicidal ideation. While she states she does not really have a plan and is unsure, she presents because of continued suicidal ideation. She denies any loss of appetite, no anhedonia, no insomnia or hypersomnolence. She states she has never been hospitalized for psychiatric reasons. PFSH PFSH Home Medications dextroamphetamine-amphetamine 10 mg tablet (Adderall) 10 mg PO DAILY 07/10/23 [History Last Taken Unknown] sertraline 50 mg tablet (Zoloft) 50 mg PO QHS 07/10/23 [History Last Taken Unknown] Allergy/AdvReac Type Severity Reaction Status Date / Time amoxicillin Allergy PT UNSURE Verified 07/10/23 17:36 OF REACTION Social History Smoking Status: Never smoker ROS ROS ED ROS Narrative Constitutional: No fever, no chills. HEENT: No sore throat. No neck pain. No loss of vision. No rhinorrhea. Cardiovascular: No chest pain. No palpitations. No pedal edema. Respiratory: No cough, no shortness of breath. Abdominal: No abdominal pain. No nausea. No vomiting. Genitourinary: No dysuria. No hematuria. Musculoskeletal: No myalgias. No arthralgias. Neurologic: No headaches. No dizziness. No lightheadedness. Skin: No rash. No change in color. Psychiatric: Positive depression with suicidal ideation. No hallucinations. EXAM Physical Exam Narrative Exam Narrative: Afebrile. Vital signs noted. HEENT: Normocephalic. Atraumatic. PERRL, EOMI. Neck soft and supple. No pointtenderness or step off. Cardiovascular: Regular rate and rhythm. No murmurs, rubs, or gallops appreciated. Respiratory: No tachypnea. Lungs clear to auscultation bilaterally. Gastrointestinal: Abdomen soft, nontender, with normoactive bowel sounds. No rebound or guarding. Neurological: Awake. Alert. Nonfocal, nonlateralizing. Skin: No rash. Normal color. No pallor. Musculoskeletal: No pedal edema. Full range of motion extremities. Psychiatric: Positive suicidal thoughts. No internal stimulation or active hallucinations. Mildly flat affect. Const Vital Signs: 07/10/23 17:37 07/10/23 19:56 Temperature 97.7 F L 97.8 F Temperature Source Temporal Temporal Pulse Rate 79 73 Respiratory Rate 18 16 Blood Pressure 115/80 120/79 Blood Pressure Mean 91 92 Pulse Ox 97 97 Oxygen Delivery Method Room Air Room Air MDM MDM MDM Narrative Medical decision making narrative: Medical clearance labs were obtained. Concern is for suicidal with ideation with plan versus depression. I reviewed her laboratory work and she has normal white count of 7.6, hemoglobin normal at 13.3, platelet count normal at 332. CMP is grossly unremarkable except for glucose of 100 and AST low at 11 which I think is nonspecific. Other electrolytes are within normal limits. Serum is negative on review. Additionally urine for drugs of abuse is negative and alcohol level is also negative. At this point in time, I do feel that she is medically cleared to be evaluated by the crisis counselor. After her evaluation, discussion with the crisis counselor reveals that she is not really suicidal with a plan and she thinks of ways or things not to do. Wasfelt that she should contract for safety. She will be getting close follow-up with a long break at her school who will follow-up with her tomorrow. She knowsthat she supposed to check into the art therapy class as well. Crisis counselorstates that they will follow-up with her on Thursday. She is able to verbally contract with me without ambivalence so I feel she can be discharged to follow-up and continue her Zoloft. They recently increased her from 25 to 50 mg so shewill continue her 50 mg dosing. Return instructions to the emergency departmentwere reviewed. Disposition is discharged home in stable condition. History & Record Review Discussion w/independent historian: Patient Lab Data Attestation: I reviewed the patient's lab results. Labs: Laboratory Results - last 24 hr 07/10/23 07/10/23 19:00 19:05 WBC 7.6 RBC 4.53 Hgb 13.3 Hct 40.7 MCV 89.8 MCH 29.4 MCHC 32.7 RDW Std Deviation 39.0 RDW Coeff of Edith 11.9 Plt Count 332 MPV 9.4 Immature Gran % (Auto) 0.300 Neut % (Auto) 59.5 Lymph % (Auto) 28.1 Letcher % (Auto) 8.9 Eos % (Auto) 2.4 Baso % (Auto) 0.8 Absolute Neuts (auto) 4.5 Absolute Lymphs (auto) 2.13 Nucleated RBC % 0 Sodium 141 Potassium 4.0 Chloride 106 Carbon Dioxide 28.0 Anion Gap 7 BUN 17 Creatinine 0.71 Estim Creat Clear Calc 108.81 Est GFR (MDRD) Af Amer 137 Est GFR (MDRD) Non-Af 113 BUN/Creatinine Ratio 24.1 H Glucose 100 Calcium 9.2 Total Bilirubin 0.30 AST 11 L ALT 16 Alkaline Phosphatase 81 Total Protein 7.6 Albumin 4.3 Globulin 3.3 Albumin/Globulin Ratio 1.3 Serum , Qual NEGATIVE Urine Opiates Screen NEGATIVE Urine Methadone Screen NEGATIVE Ur Barbiturates Screen NEGATIVE Ur Phencyclidine Scrn NEGATIVE Ur Amphetamines Screen NEGATIVE MDMA (Ecstasy) Screen NEGATIVE U Benzodiazepines Scrn NEGATIVE Urine Cocaine Screen NEGATIVE U Cannabinoids Screen NEGATIVE Ur Drug Screen Comment Ethyl Alcohol < 3.0 Discharge Plan Triage Chief Complaint: Mental Health ED Provider: Thom Mir Dx/Rx/DC Orders Clinical Impression: Suicidal thoughts, Depression Instructions: Suicide Know Self Warnings, ED Depression Prescriptions: No Action sertraline [Zoloft] 50 mg tablet 50 mg PO QHS dextroamphetamine-amphetamine [Adderall] 10 mg tablet 10 mg PO DAILY Primary Care Provider: Care Physician,No Primary Referrals: Counseling,Center [Group of Physicians] - 2 Days Care Physician,No Primary [Primary Care Provider] - Activity Restrictions/Additional Instructions: Follow-up with your counseling at school, and with the counseling center. Disposition Disposition: Home, Self Care What to do if you have Problems For any increased pain, shortness of breath, bleeding, nausea or vomiting, chestpain, or any unexpected problems, contact your Primary Care Provider. Call [facility] ([phone]) or report to the closest Emergency Room. Call 911 if necessary. 07/10/23 2306 <Electronically signed by Thom Mir MD> Cosigner Signature (if applicable): CC: No Primary Care Physician ~ Signed [facility] Work Phone: Instructions 07-09-2022 Patient Instructions Note Date & Type Note Facility 07-09-2022 Instructions Maddie Hayward APRN.ALEJANDRA - 07/09/2022 7:11 PM EDT If you were not scheduled for your Physical Therapy Evaluation during your visit, please contact [facility] Sports Therapy: [phone]. The humane agent will assist you in selecting the location that will best meet your needs. R.I.C.E. The general care of your injury includes the following: Resting, Icing, Compressing and Elevating the injured area. Remember this as RICE. REST: Limit the use of the injured body part. ICE: By applying ice to the affected area, swelling and pain can be reduced. Place some ice cubes in a re-sealable (Ziploc) bag and add some water. Put a thin washcloth between the bag and your skin. Apply the ice bag to the area for at least 20 minutes. Do this at least 4 times per day. Using the ice for longer times and more frequently is OK. NEVER APPLY ICE DIRECTLY TO THE SKIN. COMPRESS: Compression means to apply pressure around the injured area such as with a splint, cast or an isaac bandage. Compression decreases swelling and improves comfort. Compression should be tight enough to relieve swelling but not so tight as to decrease circulation. Increasing pain, numbness, tingling, or change in skin color, are all signs of decreased circulation. ELEVATE: Elevate the injured part. For example, elevate your foot by placing it on a chair while sitting, or propping it up on pillows when lying down. documented in this encounter [facility] History of Present illness Narrative 07-09-2022 Maddie Hayward APRN.NATURAL GAS TECHNICIAN - 07/09/2022 6:51 PM EDT Note Date & Type Note Facility 07-09-2022 History of Presen t illness Narrative This note was created using [employer]. Subjective Jerri Jimenez is a 16 year old female. 16 year old female with PMH ADD presents for left knee pain. Acute onset 6 months ago Left knee States playing field hockey, and states that her knee cap was visibly dislocated States she pushed the knee cap back in place. States it has bothered her since. She denies seeking medical treatment at that time, States was seen by a team life trainer, otherwise, denies being seen in past for same. Denies prior history of knee fractures or surgeries. The history is provided by the patient. No multi disciplined language analyst was used. Left knee injury: Yes (6 months ago) Left knee condition: Recurrent Left knee severity: Mild Left knee progression: Stable Patient reports that left knee feels unstable. Patient reports feeling left knee locking, popping and catching. Left job related: No Left knee aggravating factors: Deep squatting, bending of twisting, change in inclines, excessive training and regular daily ambulation. Left knee alleviating factors: Rest. No past medical history on file. No past surgical history on file. ALLERGIES Amoxicillin MEDICATIONS amphetamine-dextroamphetamine XR (ADDERALL XR) 15 mg 24 hr capsule No family history on file. Social History Tobacco Use Smoking status: Never Smokeless tobacco: Never Review of Systems Constitutional: Negative for activity change, appetite change, chills and diaphoresis. Respiratory: Negative for apnea, cough, choking and chest tightness. Cardiovascular: Negative for chest pain, palpitations and leg swelling. Gastrointestinal: Negative for abdominal pain, diarrhea, nausea and vomiting. Musculoskeletal: Left knee pain Skin: Negative for color change and pallor. Allergic/Immunologic: Negative for environmental allergies, food allergies and immunocompromised state. Hematological: Negative for adenopathy. Does not bruise/bleed easily. Psychiatric/Behavioral: Negative for agitation and behavioral problems. Objective BP 124/84 Pulse 97 Temp 36.7 C (98.1 F) Resp 18 Wt 64 kg (141 lb 3.2 oz) SpO2 98% Physical Exam Vitals and nursing note reviewed. Constitutional: General: She is not in acute distress. Appearance: Normal appearance. She is normal weight. She is not ill-appearing, toxic-appearing or diaphoretic. HENT: Head: Normocephalic and atraumatic. Right Ear: Ear canal and external ear normal. Left Ear: Ear canal and external ear normal. Nose: Nose normal. No congestion or rhinorrhea. Mouth/Throat: Mouth: Mucous membranes are moist. Pharynx: No oropharyngeal exudate or posterior oropharyngeal erythema. Eyes: General: Right eye: No discharge. Left eye: No discharge. Extraocular Movements: Extraocular movements intact. Conjunctiva/sclera: Conjunctivae normal. Pupils: Pupils are equal, round, and reactive to light. Cardiovascular: Rate and Rhythm: Normal rate and regular rhythm. Pulses: Normal pulses. Heart sounds: Normal heart sounds. No murmur heard. No friction rub. Pulmonary: Effort: Pulmonary effort is normal. No respiratory distress. Breath sounds: Normal breath sounds. No stridor. No wheezing, rhonchi or rales. Chest: Chest wall: No tenderness. Abdominal: General: Abdomen is flat. There is no distension. Palpations: Abdomen is soft. There is no mass. Tenderness: There is no abdominal tenderness. There is no right CVA tenderness, left CVA tenderness, guarding or rebound. Hernia: No hernia is present. Musculoskeletal: General: Tenderness and signs of injury present. No swelling or deformity. Normal range of motion. Cervical back: Normal range of motion and neck supple. No rigidity. Right lower leg: No edema. Left lower leg: No edema. Comments: Left knee with generalized knee pain with palpation Guarding with range of motion. Negative vagus Negative valus No skin rash or lesions Ambulatory Lymphadenopathy: Cervical: No cervical adenopathy. Skin: General: Skin is warm and dry. Coloration: Skin is not jaundiced or pale. Findings: No bruising, erythema, lesion or rash. Neurological: General: No focal deficit present. Mental Status: She is alert and oriented to person, place, and time. Cranial Nerves: No cranial nerve deficit. Sensory: No sensory deficit. Motor: No weakness. Coordination: Coordination normal. Gait: Gait normal. Psychiatric: Mood and Affect: Mood normal. Behavior: Behavior normal. Thought Content: Thought content normal. Judgment: Judgment normal. Assessment and Plan ASSESSMENT/PLAN: 1. Acute pain of left knee - ICD9: 719.46, ICD10: M25.562 X 6 months + injury - XR KNEE GENERAL 4V AP BOTH/PA BOTH/LAT/MERC LEFT-negative for acute process - [facility] - CONSULT TO PHYSICAL THERAPY - CONSULT TO ORTHOPAEDICS RICE therapy OTC medicines Maddie Hayward APRN.CNP documented in this encounter [facility] Evaluation note Note Date & Type Note Facility Evaluation note Diagnosis Acute pain of left knee- Primary documented in this encounter [facility] Evaluation note Note Date & Type Note Facility Evaluation note No assessment information availa [facility] Work Phone: Evaluation note Note Date & Type Note Facility Evaluation note Diagnosis Acute pain of left knee documented in this encounter [facility] Discharge instructions Note Date & Type Note [facility] Discharge instructions Additional Instructions Follow-up with your counseling at school, and with the counseling center. [facility] Work Phone: Reason for referral (narrative) Diagnostic Procedure Only (Urgent) - Closed Note Date & Type Note Facility Reason for referral (narrati ve) Specialty Diagnoses / Procedures Referred By Lizzy van Referred To Contact XR IMAGING Diagnoses Acute pain of left knee Procedures XR KNEE GENERAL 4V AP BOTH/PA BOTH/LAT/MERC LEFT RADIOLOGIC EXAM KNEE COMPLETE 4/MORE VIEWS Maddie Hayward APRN.NATURAL G[employer] TECHNICIAN [address] [place] [address] [place] [id number] Referral ID Status Reason Start Date Expiration Date V isits Requested Visits Authorized [id number] Closed Auto-Generate d Referral 07/09/2022 08/08/2023 1 1 [facility] Reason for visit Narrative Diagnostic Procedure Only (Urgent) - Closed Note Date & Type Note Facility Reason for visit Narrative Specialty Diagnoses / Procedures Referred By Lizzy van Referred To Contact XR IMAGING Diagnoses Acute pain of left knee Procedures XR KNEE GENERAL 4V AP BOTH/PA BOTH/LAT/MERC LEFT RADIOLOGIC EXAM KNEE COMPLETE 4/MORE VIEWS Maddie Hayward APRN.NATURAL G[employer] TECHNICIAN [address] [place] [address] [place] [id number] Referral ID Status Reason Start Date Expiration Date V isits Requested Visits Authorized [id number] Closed Auto-Generate d Referral 07/09/2022 08/08/2023 1 1 [facility] Summary Purpose Family History No Family History Records FoundNo Family History Records Found Advance Directives Advance Directive Response Recorded Date/ Time Living Will No July 10, 2023 7:15pm Power of Study Specialist No July 09 7:15pm Reason for Referral Specialty Diagnoses / Procedures Referred By Contac t Referred To Contact Orthopedics Diagnoses Acute pain of left knee Procedures CONSULT TO ORTHOPAEDICS OFFICE/OUTPATIENT [facility] 60-74 MINUTES Maddie Haywadr, ETTA.NATURAL GAS TECHNICIAN [address] [place] [address] Referral ID Status Reason Start Date Expiration Date Visits Requested Visits Authorized [id number] Authorized PCP Requested Referral 07/09/2022 07/09/2023 1 1 Specialty Diagnoses / Procedures Referred By Contac t Referred To Contact [facility] Diagnoses Acute pain of left knee Procedures [facility] - CONSULT TO PHYSICAL THERAPY OFFICE/OUTPATIENT [facility] 60-74 MINUTES Maddie Hayward APRN.NATURAL GAS TECHNICIAN [address] [place] [address] [facility] [address] [place] [address] Referral ID Status Reason Start Date Expiration Date Visits Requested Visits Authorized [id number] Pending Review Auto-Generat ed Referral 07/09/2022 07/09/2023 1 1 Specialty Diagnoses / Procedures Referred By Contac t Referred To Contact XR IMAGING Diagnoses Acute pain of left knee Procedures XR KNEE GENERAL 4V AP BOTH/PA BOTH/LAT/MERC LEFT RADIOLOGIC EXAM KNEE COMPLETE 4/MORE VIEWS Maddie Hayward, ETTA.NATURAL GAS TECHNICIAN [address] [place] [address] Xr Imaging Referral ID Status Reason Start Date Expiration Date V isits Requested Visits Authorized [id number] Closed Auto-Generate d Referral 07/09/2022 08/08/2023 1 1 Chief Complaint and Reason for Visit Chief Complaint MENTAL HEALTH Additional Source Comments INFORMATION SOURCE (unrecogn ized section and content) DATE CREATED AUTHOR 06/21/2022 [facility] DATE CREATED AUTHOR AUTHOR'S MICHAEL ATION 11/18/2023 [facility] Source Comments (unrecognize d section and content) In the event this informatio n is protected by the Federal Confidentiality of Alcohol and Drug Abuse Patient Records regulations: The Federal rules restrict any use of the information to criminally investigate or prosecute any alcohol or drug abuse patient.[facility] the event this information is protected by the Federal Confidentiality of Alcohol and Drug Abuse Patient Records regulations: The Federal rules restrict any use of the information to criminally investigate or prosecute any alcohol or drug abuse patient.[facility] Reason for Visit (unrecogniz ed section and content) Reason Comments Knee Injury L knee injury, field hockey injury x6 months Care Teams (unrecognized sec tion and content) Team Status: Active Member Role Status Dates No Primary Care Physician Primary Care Provider Active Team Status: Inactive Member Role Status Dates Thom Mir MD Emergency Provider Active No Primary Care Physician Primary Care Provider Active Goals (unrecognized section and content) Goals may be documented in a n alternate section FOR RECORDS PERTAINING TO PATIENTS WHO ARE OR HAVE BEEN ENROLLED IN A CHEMICAL DEPENDENCY/SUBSTANCEABUSE PROGRAM, SOME INFORMATION MAY BE OMITTED. This clinical summary was aggregated from multiple sources. Caution should be exercised in using it in the provision of clinical care. This summary normalizes information from multiple sources, and as a consequence, information in this document may materially change the coding, format and clinical context of patient data. In addition, data may be omitted in some cases. CLINICAL DECISIONS SHOULD BE BASED ON THE PRIMARY CLINICAL RECORDS. [employer] [facility]. provides no warranty or guarantee of the accuracy or completeness of information in this document.
[2024-09-11 00:04] VITALS: BP 136/86; PULSE 76; RESP 16; TEMP 36.6; O2SAT 98
== END 2024-09-11 00:05 | disposition home or self-care (01) ==
LOC: ED 09-11
PROVIDERS: Emergency Provider Emergency Medicine; Visit Provider Emergency Medicine
DX: M25.562 Pain in left knee (principal); G89.29 Other chronic pain; F32.A Depression, unspecified; F41.9 Anxiety disorder, unspecified; Z79.899 Other long term (current) drug therapy
CPT/HCPCS: 99282